=== PATIENT | male | born 1995 | race Caucasian/White ===

== ENCOUNTER 2017-01-25 17:09 | Emergency (ER) | payer OTHER ==
[~2017-01-25] VITALS: Ht 175.2 cm; Wt 557.9 kg
[~2017-01-25 17:09] MED LIST: BACTRIM DS 8001 TA1 PO; CIPRO250 MG PO; CIPRODEX 0.3%-7.5 ML OT; DICLOXACILLIN500 MG PO; IBU800 MG PO; MOTRIN400 MG PO; MOTRIN800 MG PO; NKHM; TRIMOX500 MG PO; VIBRA-TAB100 MG PO
[2017-01-25 18:26] LABS: BASO % 0.4 % (0.0-1.0); EOS # 0.1 10*3/uL (0.0-0.4); EOS % 0.8 % (1.0-4.0); HEMATOCRIT 45.5 % (42.0-52.0); HEMOGLOBIN 16.3 g/dl (14.0-18.0); LYMPH # 2.6 10*3/uL (1.3-4.4); LYMPH % 34.5 % (27.0-41.0); MEAN CELL VOLUME 84.3 fl (80.0-94.0); MEAN CORPUSCULAR HGB 30.2 pg (27.0-31.0); MEAN CORPUSCULAR HGB CONC 35.8 g/dl (33.0-37.0); MEAN PLATELET VOLUME 8.8 fl (9.6-12.3); MONO # 0.5 10*3/uL (0.1-1.0); MONO % 7.3 % (3.0-9.0); NEUT # 4.2 10*3/uL (2.3-7.9); NEUT % 56.5 % (47.0-73.0); PLATELET COUNT AUTOMATED 254 10*3/uL (130-400); RED CELL DISTRI WIDTH 12.7 % (0-14.5); WHITE BLOOD COUNT 7.4 10*3/uL (4.8-10.8)
[2017-01-25 18:44] LABS: ALBUMIN 4.8 gm/dl (3.1-4.5); BUN 7 mg/dl (7-24); CARBON DIOXIDE 27 mmol/L (21-32); CHLORIDE 107 mmol/L (98-107); EST GLOM FILT AFRICAN AMERICAN > 60 ml/min; GLUCOSE 86 mg/dL (65-99); POTASSIUM 4.3 mmol/L (3.5-5.1); SGOT/AST 12 IU/L (3-35); SGPT/ALT 20 U/L (12-78); SODIUM 143 mmol/L (136-145)
[2017-01-25 18:46] LABS: ALKALINE PHOSPHATASE 109 U/L (45-117); BILIRUBIN, TOTAL 0.6 mg/dl (0.2-1.0); TOTAL PROTEIN 7.7 gm/dL (6.4-8.2)
[2017-01-25 19:20] LABS: BILIRUBIN NEGATIVE (NEGATIVE); BLOOD NEGATIVE (NEGATIVE); CLARITY CLEAR (CLEAR); COLOR YELLOW (YELLOW); GLUCOSE NEGATIVE (NEGATIVE); KETONE NEGATIVE (NEGATIVE); LEUKO ESTERASE NEGATIVE (NEGATIVE); NITRITE NEGATIVE (NEGATIVE); PH 7.5 (5.0-9.0); PROTEIN NEGATIVE (NEGATIVE); UROBILINOGEN 0.2 E.U./dl (0.2-1.0)
[2017-01-25 19:30] LABS: RBC 0-2 rbc/hpf (0-2); URINE REFLEX COMMENT NO (NO)
[2017-01-25] MEDS ORDERED: NAPROSYN500 MG PO (20:06)
[2017-01-25] MEDS ORDERED: CYCLOBENZAPRINE10 MG PO (20:06)
== END 2017-01-25 20:14 | disposition home or self-care (01) ==
LOC: ED 17:09
PROVIDERS: Nurse Practitioner Family
DX: S39.011A Strain of muscle, fascia and tendon of abdomen, initial encounter (principal); F17.200 Nicotine dependence, unspecified, uncomplicated; X58.XXXA Exposure to other specified factors, initial encounter; Y93.9 Activity, unspecified; Y92.9 Unspecified place or not applicable; Y99.9 Unspecified external cause status

== ENCOUNTER 2017-06-21 16:02 | Emergency (ER) | payer SELFPAY ==
[~2017-06-21] VITALS: Ht 177.8 cm; Wt 61.2 kg
[~2017-06-21 16:02] MED LIST changes: +CYCLOBENZAPRINE10 MG PO; +NAPROSYN500 MG PO
[2017-06-21] MEDS ORDERED: CEPHALEXIN500 M1 PO (17:59)
== END 2017-06-21 19:02 | disposition home or self-care (01) ==
LOC: ED 16:02
DX: S61.412A Laceration without foreign body of left hand, initial encounter (principal); F17.200 Nicotine dependence, unspecified, uncomplicated; W22.8XXA Striking against or struck by other objects, initial encounter; Y93.89 Activity, other specified; Y92.89 Other specified places as the place of occurrence of the external cause; Y99.8 Other external cause status

== ENCOUNTER 2018-01-11 16:51 | Emergency (ER) | payer SELFPAY ==
[~2018-01-11] VITALS: Ht 177.8 cm; Wt 59.0 kg
[~2018-01-11 16:51] MED LIST changes: +CEPHALEXIN500 M1 PO
[2018-01-11] MEDS ORDERED: AMOXICILLIN500 M2 PO (17:43)
[2018-01-11] MEDS ORDERED: IBUPROFEN600 MG PO (17:43)
== END 2018-01-11 18:01 | disposition home or self-care (01) ==
LOC: ED 16:51
DX: K08.89 Other specified disorders of teeth and supporting structures (principal); R68.84 Jaw pain

== ENCOUNTER 2018-01-30 21:55 | Emergency (ER) | payer SELFPAY ==
[~2018-01-30] VITALS: Ht 180.3 cm; Wt 59.0 kg
[~2018-01-30 21:55] MED LIST changes: +AMOXICILLIN500 M2 PO; +IBUPROFEN600 MG PO
[2018-01-30] MEDS ORDERED: CLINDAMYCIN150 MG PO (22:21)
== END 2018-01-30 22:45 | disposition home or self-care (01) ==
LOC: ED 21:55
DX: J06.9 Acute upper respiratory infection, unspecified (principal); F17.200 Nicotine dependence, unspecified, uncomplicated

== ENCOUNTER 2020-08-20 20:03 | Emergency (ER) | payer OTHER ==
[~2020-08-20] VITALS: Ht 177.8 cm; Wt 72.6 kg
[~2020-08-20 20:03] MED LIST changes: +CLINDAMYCIN150 MG PO; +Motrin,Rufen800 MG PO
[2020-08-20] MEDS ORDERED: CYCLOBENZAPRINE5 M3 PO (22:03)
== END 2020-08-20 22:15 | disposition home or self-care (01) ==
LOC: ED 20:03
DX: M79.18 Myalgia, other site (principal); M54.2 Cervicalgia; M54.9 Dorsalgia, unspecified; Z87.891 Personal history of nicotine dependence; V89.2XXA Person injured in unspecified motor-vehicle accident, traffic, initial encounter; Y93.89 Activity, other specified; Y92.89 Other specified places as the place of occurrence of the external cause; Y99.8 Other external cause status

== ENCOUNTER 2022-03-08 14:20 | Emergency (ER) | payer SELFPAY ==
[~2022-03-08 14:20] MED LIST changes: +CYCLOBENZAPRINE5 M3 PO
[2022-03-08] MEDS ORDERED: NAPROSYN500 MG PO (16:44)
== END 2022-03-08 16:52 | disposition home or self-care (01) ==
LOC: ED 14:20
DX: R07.89 Other chest pain (principal); R05.9 Cough, unspecified; Z87.891 Personal history of nicotine dependence

== ENCOUNTER 2023-08-08 07:12 | Emergency (ER) | payer SELFPAY ==
[~2023-08-08] VITALS: Ht 180.3 cm; Wt 72.6 kg
[2023-08-08 07:44] LABS: BILIRUBIN Negative (Negative); BLOOD 3+ (Negative); CLARITY Cloudy (Clear); COLOR Orange (Yellow); GLUCOSE Negative (Negative); KETONE Negative (Negative); LEUKO ESTERASE Trace (Negative); NITRITE Negative (Negative); SPECIFIC GRAVITY 1.025 (1.001-1.030)
[2023-08-08 08:06] LABS: BACTERIA 1+; RBC TNTC rbc/hpf (0-2)
[2023-08-08 08:10] LABS: BASO # 0.1 10*3/uL (0.0-0.1); BASO % 0.8 % (0.0-1.0); EOS # 0.3 10*3/uL (0.0-0.4); EOS % 2.8 % (1.0-4.0); HEMATOCRIT 46.1 % (42.0-52.0); LYMPH # 4.6 10*3/uL (1.3-4.4); LYMPH % 39.3 % (27.0-41.0); MEAN CELL VOLUME 84.1 fl (80.0-94.0); MEAN CORPUSCULAR HGB 29.7 pg (27.0-31.0); MEAN CORPUSCULAR HGB CONC 35.4 g/dl (33.0-37.0); MONO # 0.9 10*3/uL (0.1-1.0); MONO % 7.5 % (3.0-9.0); NEUT # 5.7 10*3/uL (2.3-7.9); NEUT % 48.6 % (47.0-73.0); PLATELET COUNT AUTOMATED 333 10*3/uL (130-400); RED BLOOD COUNT 5.48 10*6/uL (4.50-5.90); RED CELL DISTRI WIDTH 12.8 % (0-14.5); WHITE BLOOD COUNT 11.8 10*3/uL (4.8-10.8)
[2023-08-08 08:23] LABS: ALKALINE PHOSPHATASE 98 U/L (46-116); BUN 11 mg/dl (9-23); CHLORIDE 109 mmol/L (98-107); LIPASE 44 U/L (12-53); POTASSIUM 4.1 mmol/L (3.4-5.1); SGPT/ALT 24 U/L (10-49); TOTAL PROTEIN 7.3 gm/dL (6.0-8.0)
[2023-08-08] MEDS ORDERED: PERCOCET 5-3251 EACH PO (10:39)
[2023-08-08] MEDS ORDERED: PHENERGAN25 M3 PO (10:39)
[2023-08-08] MEDS ORDERED: Motrin,Rufen800 MG PO (10:39)
== END 2023-08-08 10:45 | disposition home or self-care (01) ==
LOC: ED 07:12
PROVIDERS: Emergency Medicine
DX: N20.1 Calculus of ureter (principal); R11.2 Nausea with vomiting, unspecified; F10.10 Alcohol abuse, uncomplicated; F17.200 Nicotine dependence, unspecified, uncomplicated

== ENCOUNTER 2025-01-18 05:06 | Emergency (ER) | payer SELFPAY ==
[~2025-01-18] VITALS: Ht 177.8 cm; Wt 81.6 kg
[~2025-01-18 05:06] MED LIST changes: +PERCOCET 5-3251 EACH PO; +PHENERGAN25 M3 PO
[2025-01-18] MEDS ORDERED: Ketorolac Tromethamine 30 MG/ML VIAL IV ONE (05:30)
[2025-01-18] MEDS ORDERED: Ondansetron Hydrochloride 4 MG/2 ML VIAL IV ONE (05:30)
[2025-01-18 05:50] LABS: BILIRUBIN Negative (Negative); BLOOD 3+ (Negative); CLARITY Cloudy (Clear); COLOR Dark Yellow (Yellow); GLUCOSE Negative (Negative); KETONE Negative (Negative); LEUKO ESTERASE Negative (Negative); NITRITE Negative (Negative); SPECIFIC GRAVITY >= 1.030 (1.001-1.030)
[2025-01-18] MEDS ORDERED: Ondansetron4 MG PO (06:05)
[2025-01-18] MEDS ORDERED: HYDROCODONE-AC1 EAC1 PO (06:05)
[2025-01-18] MEDS ORDERED: FLOMAX0.4 MG PO (06:05)
[2025-01-18] MEDS ORDERED: Tamsulosin Hydrochloride 0.4 MG CAP PO ONE (06:10)
[2025-01-18 06:14] LABS: CALCIUM OXALATE CRYSTALS 2+; RBC TNTC rbc/hpf (0-2)
[2025-01-18 06:15] LABS: HYALINE CAST 0-2; MUCOUS TRACE; WBC 0-2 wbc/hpf (0-5)
== END 2025-01-18 06:46 | disposition home or self-care (01) ==
LOC: ED 05:06
PROVIDERS: Internal Medicine
DX: N13.2 Hydronephrosis with renal and ureteral calculous obstruction (principal); N13.4 Hydroureter; R11.2 Nausea with vomiting, unspecified; F17.200 Nicotine dependence, unspecified, uncomplicated; Z79.899 Other long term (current) drug therapy

== ENCOUNTER 2025-01-21 08:30 | Emergency (ER) | payer SELFPAY ==
[~2025-01-21] VITALS: Ht 180.3 cm; Wt 81.6 kg
[~2025-01-21 08:30] MED LIST changes: +FLOMAX0.4 MG PO; +HYDROCODONE-AC1 EAC1 PO; +Ondansetron4 MG PO
[2025-01-21] MEDS ORDERED: SODIUM CHLORIDE 0.9% 1,000 ML IV ONE (09:00)
[2025-01-21] MEDS ORDERED: Ondansetron Hydrochloride 4 MG/2 ML VIAL IV ONE (09:00)
[2025-01-21 09:11] LABS: BASO % 0.2 % (0.0-1.0); EOS % 0.2 % (1.0-4.0); HEMATOCRIT 43.6 % (42.0-52.0); MEAN CELL VOLUME 84.2 fl (80.0-94.0); MEAN CORPUSCULAR HGB 28.6 pg (27.0-31.0); MEAN CORPUSCULAR HGB CONC 33.9 g/dl (33.0-37.0); MEAN PLATELET VOLUME 8.6 fl (9.6-12.3); MONO % 5.7 % (3.0-9.0); NEUT % 85.1 % (47.0-73.0); PLATELET COUNT AUTOMATED 266 10*3/uL (130-400); RED BLOOD COUNT 5.18 10*6/uL (4.50-5.90); RED CELL DISTRI WIDTH 13.2 % (0-14.5); WHITE BLOOD COUNT 17.6 10*3/uL (4.8-10.8)
[2025-01-21 09:33] LABS: ALKALINE PHOSPHATASE 87 U/L (46-116); BUN 16 mg/dl (9-23); CHLORIDE 104 mmol/L (98-107); POTASSIUM 4.6 mmol/L (3.4-5.1); SGPT/ALT 17 U/L (5-49); TOTAL PROTEIN 7.2 gm/dL (6.0-8.0)
[2025-01-21 09:52] LABS: BILIRUBIN Negative (Negative); BLOOD 1+ (Negative); CLARITY Clear (Clear); COLOR Yellow (Yellow); GLUCOSE Negative (Negative); KETONE Negative (Negative); LEUKO ESTERASE Trace (Negative); NITRITE Negative (Negative); PH 5.5 (4.5-8.0); UROBILINOGEN 0.2 E.U./dl (0.0-1.0)
[2025-01-21 10:22] LABS: MUCOUS 1+
[2025-01-21] MEDS ORDERED: Ketorolac Tromethamine 15 MG/ML VIAL IV ONE (10:25)
[2025-01-21] MEDS ORDERED: NAPROSYN500 MG PO (11:39)
== END 2025-01-21 11:34 | disposition home or self-care (01) ==
LOC: ED 08:30
PROVIDERS: Internal Medicine
DX: N13.2 Hydronephrosis with renal and ureteral calculous obstruction (principal); N13.4 Hydroureter; R11.2 Nausea with vomiting, unspecified; F10.10 Alcohol abuse, uncomplicated; F17.200 Nicotine dependence, unspecified, uncomplicated

== ENCOUNTER 2025-07-22 06:05 | Emergency (ER) | payer SELFPAY ==
[~2025-07-22] VITALS: Ht 177.8 cm; Wt 86.2 kg
[2025-07-22] MEDS ORDERED: Ondansetron Hydrochloride 4 MG/2 ML VIAL IV ONE (06:10)
[2025-07-22] MEDS ORDERED: SODIUM CHLORIDE 0.9% 1,000 ML IV ONE (06:10)
[2025-07-22 06:40] LABS: BASO # 0.0 10*3/uL (0.0-0.1); BASO % 0.4 % (0.0-1.0); EOS # 0.2 10*3/uL (0.0-0.4); EOS % 1.6 % (1.0-4.0); MEAN CELL VOLUME 82.3 fl (80.0-94.0); MEAN CORPUSCULAR HGB 29.1 pg (27.0-31.0); MEAN PLATELET VOLUME 9.2 fl (9.6-12.3); MONO # 0.9 10*3/uL (0.1-1.0); MONO % 8.3 % (3.0-9.0); NEUT # 8.2 10*3/uL (2.3-7.9); NEUT % 76.9 % (47.0-73.0); NUCLEATED RED BLOOD CELL 0.0 % (0.0-0.0); NUCLEATED RED BLOOD CELL 0.0 10*3/uL (0.0-0.0); PLATELET COUNT AUTOMATED 249 10*3/uL (130-400); RED CELL DISTRI WIDTH 13.1 % (0-14.5)
[2025-07-22 06:57] LABS: BUN 13 mg/dl (9-23)
== END 2025-07-22 08:12 | disposition home or self-care (01) ==
LOC: ED 06:05
PROVIDERS: Internal Medicine
DX: B34.9 Viral infection, unspecified (principal)